=== PATIENT | male | born 2000 | race Caucasian/White ===

== ENCOUNTER 2024-12-21 02:17 | Emergency (ER) | payer SELFPAY ==
[2024-12-21 02:26] VITALS: BP 131/69; PULSE 97; RESP 20; TEMP 36.7; O2SAT 98; BMI 26.4
--- OUTSIDE RECORDS SUMMARY | 2024-12-21 03:00 | XMS_ITS | Encounter Summary ---
Author Organization [facility] Address [address] [place] [address] Care Team Providers Care Vertical Borer Name Role Phone Kimani Reyes MD Primary Care Provider [phone] Angelo Rome MD Primary Care Provider [phone] Reason for Visit * Reason Onset Date Comments Refill Request 07/14/2021 Encounter Details Date Type Department Care Team (Late st Contact Info) Description 07/14/2021 Refill [address] [address] Sample Processor: Kimani Cheatham MD [address] [place] [address] Refill Request Social History Tobacco Use Types Packs/Day Years Used Date Smoking Tobacco: Never Assessed Sex and Gender Information Value Date Recorded Sex Assigned at Not on file Legal Sex Male 11:11 PM EST Gender Identity Not on file Sexual Orientation Not on file documented as of this encounter Plan of Treatment Not on file documented as of this encounter Visit Diagnoses Not on filedocumented in this encounter Care Teams Vertical Borer Relationship Specialty Start Date End Date Kimani Reyes MD [address] [place] [id number] PCP - General PEDIATRICS GENERAL 11/05/19 10/15/24 Angelo Rome MD [address] [place] [address] PCP - General INTERNAL MEDICINE 10/16/24 documented as of this encounter
--- OUTSIDE RECORDS SUMMARY | 2024-12-21 03:00 | XMS_ITS | Encounter Summary ---
Author Organization [facility] Address [place] [address] Care Team Providers Care Cycle Liaison Name Role Phone Kimani Reyes MD Primary Care Provider [phone] Angelo Rome MD Primary Care Provider [phone] Reason for Visit * Reason Onset Date Comments Refill Request 11/09/2020 Encounter Details Date Type Department Care Team (Late st Contact Info) Description 11/09/2020 Refill 5 [facility] [address] [place] [id number] Stock Mover: Kimani Cheatham MD [address] [place] [address] Refill Request Social History Tobacco Use Types Packs/Day Years Used Date Smoking Tobacco: Never Assessed Sex and Gender Information Value Date Recorded Sex Assigned at Not on file Legal Sex Male 11:11 PM EST Gender Identity Not on file Sexual Orientation Not on file documented as of this encounter Miscellaneous Notes * Telephone Encounter - Claire Cruz - 11/09/2020 6:27 PM EDT Left message on HIPPA number he needs to schedule a medication check for refill of medication sincelast visit was in December 2019 and last ordered in March 2020. * Telephone Encounter - Claire Portillo - 11/09/2020 2:01 PM EDT Patient is out of medication documented in this encounter Plan of Treatment Not on file documented as of this encounter Visit Diagnoses Not on filedocumented in this encounter Care Teams Cycle Liaison Relationship Specialty Start Date End Date Kimani Reyes MD [address] [place] [address] PCP - General PEDIATRICS GENERAL 11/05/19 10/15/24 Angelo Rome MD 5 [place] [address] PCP - General INTERNAL MEDICINE 10/16/24 documented as of this encounter
--- OUTSIDE RECORDS SUMMARY | 2024-12-21 03:00 | XMS_ITS | Clinical Summary ---
Author Organization [facility] Address [address] [place] [address] Care Team Providers Care Relay Dispatcher Name Role Phone Angelo oRme MD Primary Care Provider [phone] Allergies Active Allergy Reactions Criticality Noted Date Comments Montelukast Nausea and Vomiting 04/26/2012 Medications No known medications Active Problems Problem Noted Date Diagnosed Date Attention deficit hyperactiv ity disorder (ADHD), combined type 11/14/2018 RAD (reactive airway disease) 04/26/2012 Seasonal allergic rhinitis 04/26/2012 Encounters Date Type Department Care Team Description 10/25/2024 7:55 AM EDT Lab Work 5 [facility] [address] [place] [address] 10/16/2024 6:00 PM EDT Office Visit [address] [place] [address] INTERNAL MEDICINE [address] [place] [address] Shingler: Angelo Coleman MD Comprehensive Physical Exam (New patient) from Last 3 Months Immunizations Immunization Administration Dates Next Due DTAP Vaccine 10/02/2006, 4,03/11/2002,01/07,2001 Gardasil 9 Vaccine (HPV) 03/07/2017,07/29/2016 Hep A Vacc, Ped/adol, (2-Dose) 12/20/2019,2018 Hepatitis B Vaccine, adolesc ent or pediatric 05/27/2002,2001,2001 Hib (Historical) 04/29/2003, 2,01/07/2002,10/25 INFLUENZA >3 VACCINE ([facility]) 02/14/2013 Influenza Vaccine STANDARD ( 6 months +) 03/31/2022,01/09/2021,01/22/2019,03/13,03/07/2017,03/18/2016,06/10/2015 ,03/14/2014,04/26/2012 Influenza, 6-35 months 04/01/2004,03/03/2004 [id number] (H1N1) (Historical) 03/18/2009 ,02/13/2009 Influenza-whole (Historical) 02/24/2011, 01/14/2010,01/01/2009,02/13,01/29/2007,04/02/2006,02/09/2005 MMR VACCINE 09/29/2005,03/06/2003 Meningococcal B Vaccine (BEXSERO) 01/22/2019, Meningococcal vaccine MCV4P (MENACTRA) 9,05/02/2013 Pneumococcal conjugate (Historical) 08/16,05/27/2002,01/22/2002,11/29 Polio Nos (Historical) 10/02/2006,2002,01/22/2002,11/29 Tdap Vaccine 04/26/2012 Varicella Virus Vaccine 10/08/2008,03/06/2003 Family History Medical History Relation Name Comments High Blood Pressure Father High Cholesterol Father High Blood Pressure Mother High Cholesterol Mother Relation Name Status Comments Father Mother Social History Tobacco Use Types Packs/Day Years Used Date Smoking Tobacco: Never Smokeless Tobacco: Never Tobacco Cessation:Counseling Given: Not Answered Alcohol Use Standard Drinks/Week Comments Yes 0 (1 standard drink = 0.6 oz pur e alcohol) weekends few drinks Spiritual Distress Answer Date Recorded Struggle with loss of meaning Not on file Gnosticism Struggles Not on file 09/29/2021 Sex and Gender Information Value Date Recorded Sex Assigned at Not on file Legal Sex Male 11:11 PM EST Gender Identity Not on file Sexual Orientation Not on file Last Filed Vital Signs Vital Sign Reading Time Taken Comments Blood Pressure 120/82 10/16/2024 6:01 PM EDT Pulse 92 10/16/2024 6:01 PM EDT Temperature 36.9 C (98.4 F) 10/16/2024 6:01 PM EDT Respiratory Rate 18 11/10/2021 4:43 PM EDT Oxygen Saturation 94% 10/16/2024 6:01 PM EDT Inhaled Oxygen Concentration - - Weight 99.3 kg (219 lb) 10/16/2024 6:01 PM EDT Height 185.4 cm (6' 1 ) 10/16/2024 6:01 PM EDT Body Mass Index 28.89 10/16/2024 6:01 PM EDT Plan of Treatment Health Maintenance Due Date Last Done Comments Depression Screening (PHQ2/9) 2001 Hepatitis B Screen 2001 HIV SCREEN 08/19/2019 Hepatitis C Screening 08/19/2019 DTaP/Tdap/Td Vaccines (7 - Td or Tdap) 04/26/2022 04/26/2012, 10/02/2006, 04/29/2003, Additional history exists COVID-19 Vaccination ( season) 2024 04/01/2021, 08/09/2020, 07/19/2020 FLU VACCINE 12/16/2024 03/31/2022, 03/17, 01/09/2021, Additional history exists Preventive Health Visit 10/16/2025 10/17/19, 11/10/2021, 12/20/2019 Zoster (Shingrix) Vaccines (1 of 2) 08/19/2051 HPV Vaccines Completed 03/07/2017, 07/29/2016 Well Child & Young Adult Visit Discontinued 10/16/2024, 11/10/2021, 12/20/2019, Additional history exists Pneumococcal Vaccine Aged Out No long er eligible based on patient's age to complete this topic Procedures Procedure Name Priority Date/Time Associated Diagnosis Comments CBC+PLT+DIFF Routine 10/25/2024 7:54 AM EDT Routine general medical examination at a health care facility COMPREHENSIVE METABOLIC PANEL Routine 10/25/2024 7:54 AM EDT Routine general medical examination at a health care facility LIPID PANEL Routine 10/25/2024 7:54 AM EDT Routine general medical examination at a health care facility TSH Routine 10/25/2024 7:54 AM EDT Routine general medical examination at a health care facility URINALYSIS, ROUTINE Routine 10/25/2024 7 :54 AM EDT Routine [facility] from Last 3 Months Results * TSH (10/25/2024 7:54 AM EDT) TSH 1.64 0.34 - 5.60 UIU/ML NS LAB Blood 10/25/2024 7:54 AM EDT us Angelo Rome MD LABORATORY Final Result NS LAB [facility] [address] [place] [address] [place] [address] * CBC+PLT+DIFF (10/25/2024 7:54 AM EDT) WBC 5.2 3.8 - 10.5 X10E3 NS LAB RBC BLOOD CELL 4.69 4.35 - 5.90 X10E6 NS LAB Hemoglobin 14.3 13.5 - 17.1 G/DL NS LAB HEMATOCRIT 42.5 40.5 - 51.3 % NS LAB MEAN CASI. VOLUME 91.0 80.0 - 98.0 FL NS LAB MEAN CASI. HGB 30.4 27.0 - 33.0 PG NS LAB MEAN CASI. HGB CONC. 33.6 32.0 - 36.0 G/DL NS LAB RED DISTRIB. WIDTH 13.8 11.0 - 14.6 % NS LAB PLATELET 290.0 140.0 - 375.0 X10E3 NS LAB MEAN PLT VOLUME 8.1 6.8 - 10.6 FL NS LAB NEUTROPHIL % 59.0 50.0 - 70.0 % NS LAB LYMPHOCYTE % 31.0 20.0 - 50.0 % NS LAB MONOCYTE % 5.8 0.0 - 10.0 % NS LAB NEUTROPHIL # 3.1 2.0 - 7.5 /MM NS LAB LYMPHOCYTE # 1.6 1.0 - 4.0 K/UL NS LAB MONOCYTE # 0.3 0.2 - 1.0 /MM NS LAB EOSINOPHIL % 3.5 0.0 - 5.0 % NS LAB BASOPHIL % 0.7 0.0 - 1.0 % NS LAB EOSINOPHIL # 0.2 0.0 - 0.6 NS LAB BASOPHIL # 0.0 0.0 - 0.2 NS LAB Blood 10/25/2024 7:54 AM EDT Angelo Rome MD LABORATORY Final Result Performing Organization Address City/[facility] Co de Phone Number NS LAB [facility] [address] [place] [address] [place] [address] * URINALYSIS, ROUTINE (10/25/2024 7:54 AM EDT) COLOR YELLOW NS LAB CLARITY CLEAR NS LAB U-PH 6.5 5.0 - 8.0 NS LAB U-SPECIFIC GRAVITY 1.020 1.001 - 1.035 NS LAB U-PROTEIN NEGATIVE NEGATIVE NS LAB U-GLUCOSE NEGATIVE NEGATIVE NS LAB U-KETONE NEGATIVE NEGATIVE NS LAB U-BLOOD NEGATIVE NEGATIVE NS LAB UROBILINOGEN 0.2 0.2 E.U./DL - 1.0 E. NS LAB U-NITRITE NEGATIVE NEGATIVE NS LAB U-LEUKOCYTE ESTERASE NEGATIVE NEGATIVE NS LAB U-BILIRUBIN NEGATIVE NEGATIVE NS LAB Urine 10/25/2024 7:54 AM EDT Angelo Rome MD URINE ORDERABLES Final Result Performing Organization Address City/[facility]/ZIP Co de Phone Number NS LAB [facility] [address] [phone] [place] [address] * (ABNORMAL) LIPID PANEL (10/25/2024 7:54 AM EDT) CHOLESTEROL 159.0 0.0 - 200.0 MG/DL NS LAB TRIGLYCERIDES 36.0(L) 48.0 - 150.0 MG/DL NS LAB HDL cholesterol 62.7 33.0 - 78.0 MG/DL NS LAB LDL Cholesterol, Direct 93.3 50.0 - 130.0 MG/DL NS LAB VLDL 7.0 5.0 - 30.0 MG/DL NS LAB CHOL/HDL CHOL RATIO 2.5 2.3 - 5.0 NS LAB Blood 10/25/2024 7:54 AM EDT Angelo Rome MD LABORATORY Final Result NS LAB [facility] [address] [facility] [phone] [place] [address] * COMPREHENSIVE METABOLIC PANEL (10/25/2024 7:54 AM EDT) Pathologist [facility] GLUCOSE 90.0 70.0 - 99.0 MG/DL NS LAB UREA NITROGEN 15.4 7.0 - 25.0 MG/DL NS LAB CREATININE 1.1 0.6 - 1.3 MG/DL NS LAB EGFR NON- AM 82.95 ML/MIN/1.7 NS LAB EGFR AM 82.95 ML/MIN/1.7 NS LAB CALCIUM 9.8 8.6 - 10.3 MG/DL NS LAB Protein Total, Serum 7.4 6.0 - 8.3 G/DL NS LAB ALBUMIN, BLD 4.5 3.7 - 5.3 G/DL NS LAB AST (SGOT) 31.0 0.0 - 39.0 U/L NS LAB ALT(SGPT) 18.0 0.0 - 52.0 U/L NS LAB ALK PHOSPHATASE, BLD 45.0 34.0 - 104.0 U/L NS LAB BILIRUBIN TOTAL 0.6 0.3 - 1.3 MG/DL NS LAB SODIUM-BLD 139.0 135.0 - 145.0 MEQ/L NS LAB Potassium 3.8 3.5 - 5.2 MEQ/L NS LAB CHLORIDE-BLD 102.0 98.0 - 109.0 MEQ/L NS LAB CO2 TOTAL 29.9 21.0 - 31.0 MEQ/L NS LAB 10/25/2024 7:54 AM EDT Angelo Rome MD LABORATORY Final Result NS LAB [facility] [address] [facility] [phone] [place] [address] from Last [address] [facility] Address: [phone] [place] [address] on file Care Teams Relay Dispatcher Relationship Specialty Start Date End Date Angelo Rome MD [address] [place] [address] PCP - General INTERNAL MEDICINE 10/16/24
--- OUTSIDE RECORDS SUMMARY | 2024-12-21 03:00 | XMS_ITS | Encounter Summary ---
Author Organization [facility] [place] [address] Care Team Providers Care Egg Producer Name Role Phone Madalyn Da Silva MD Primary Care Provider [phone] Ludwin Taylor MD Primary Care Provider [phone] Kimani Reyes MD Primary Care Provider [phone] Angelo Rome MD Primary Care Provider [phone] Encounter Details Date Type Department Care Team (Late st Contact Info) Description 12/23/2013 Orders Only [facility]ACT[facility] [address] [place] [id number] Mad[place] [address] Social History Tobacco Use Types Packs/Day Years Used Date Smoking Tobacco: Never Assessed Sex and Gender Information Value Date Recorded Sex Assigned at Not on file Legal Sex Male 11:11 PM EST Gender Identity Not on file Sexual Orientation Not on file documented as of this encounter Plan of Treatment Not on file documented as of this encounter Procedures Procedure Name Priority Date/Time Associated Diagnosis Comments CXR PA & LL ONLY ADMITTING Routine 12/23/2013 10:00 AM EDT documented in this encounter Results * CXR PA & LL ONLY ADMITTING (12/23/2013 10:00 AM EDT) TEXT Chest Clinical history: Left chest pain PA and lateral views of the chest show the bony thorax to be intact. The trachea is midline. The mediastinum and cardiac silhouette are normal in appearance. No airspace consolidation, pleural effusion or pneumothorax is seen. Impression: Normal chest RADIOLOGY MAIN Anatomical Region Laterality Modality Other 12/23/2013 10:0 0 AM EDT Madalyn Da Silva MD GENERAL IMAGING Final Result documented in this encounter Visit Diagnoses Not on filedocumented in this encounter Care Teams Egg Producer Relationship Specialty Start Date End Date [place] [address] PCP - General PEDIATRICS GENERAL 02/14/13 01/21/19 Ludwin Taylor MD [address] [place] [address] PCP - General PEDIATRICS GENERAL 01/22/19 11/04/19 Kimani Reyes MD [address] [place] [address] PCP - General PEDIATRICS GENERAL 11/05/19 10/15/24 Angelo Rome MD [address] [place] [phone] PCP - General INTERNAL MEDICINE 10/16/24 documented as of this encounter
--- OUTSIDE RECORDS SUMMARY | 2024-12-21 03:00 | XMS_ITS | Encounter Summary ---
Author Organization [facility] [address] Care Team Providers Care Oil Well Cable Tool Operator Name Role Phone Madalyn Da Silva MD Primary Care Provider [phone] Ludwin Taylor MD Primary Care Provider [phone] Kimani Reyes MD Primary Care Provider [phone] Angelo Rome MD Primary Care Provider [phone] Encounter Details Date Type Department Care Team (Late st Contact Info) Description 12/23/2013 Orders Only [facility]_DEACTIVATED [address] [place] [id number] Madalyn aD Silva MD [place] [id number] Social History Tobacco Use Types Packs/Day Years Used Date Smoking Tobacco: Never Assessed Sex and Gender Information Value Date Recorded Sex Assigned at Not on file Legal Sex Male 11:11 PM EST Gender Identity Not on file Sexual Orientation Not on file documented as of this encounter Plan of Treatment Not on file documented as of this encounter Visit Diagnoses Diagnosis Chest pain on breathing Painful respiration documented in this encounter Care Teams Oil Well Cable Tool Operator Relationship Specialty Start Date End Date Madalyn Da Silva MD [place], [place] [phone] PCP - General PEDIATRICS GENERAL 02/14/13 01/21/19 Ludwin Taylor MD [address] [place] [address] PCP - General PEDIATRICS GENERAL 01/22/19 11/04/19 Kimani Reyes MD [address] [place] [address] PCP - General PEDIATRICS GENERAL 11/05/19 10/15/24 Angelo Rome MD [address] [place] [id number] PCP - General INTERNAL MEDICINE 10/16/24 documented as of this encounter
--- OUTSIDE RECORDS SUMMARY | 2024-12-21 03:00 | XMS_ITS | Encounter Summary ---
[facility] Address [place] [address] Care Team Providers Care Registered Client Associate Name Role Phone Kimani Reyes MD Primary Care Provider [phone] Angelo Rome MD Primary Care Provider [phone] Reason for Visit * Reason Onset Date Comments Medication Refill 02/19/2021 Encounter Details Date Type Department Care Team (Late st Contact Info) Description 02/19/2021 Telephone 5 [facility] [address] [place] [address] Surgical Aides Teacher: Kimani Cheatham MD [address] [place], [place] [id number] Medication Refill Social History Tobacco Use Types Packs/Day Years Used Date Smoking Tobacco: Never Assessed Sex and Gender Information Value Date Recorded Sex Assigned at Not on file Legal Sex Male 11:11 PM EST Gender Identity Not on file Sexual Orientation Not on file documented as of this encounter Miscellaneous Notes * Telephone Encounter - Kimani Reyes MD - 02/19/2021 12:35 PM EDT escribed * Telephone Encounter - Mert Anirudh - 02/19/2021 12:22 PM EDT Angelo Montes is a 20 y.o. male who is requesting a medication refill PTs mothe is leaving to bring medication to PTs school tmrw Initial pharmacy did not have medication, PTs mother is asking if new script could sent to [facility] in [place] Last Appointment Date: Last Appointment Visit Type: Next Appointment Date: Next Appointment Visit Type: Name of Medication Dose of Medication Frequency of Medication lisdexamfetamine (VYVANSE) 30 mg capsule (VYVANSE) 30 mg capsule Take 1 capsule by mouth every morning. Max Daily Amount: 30 mg. The prior medication(s) is/are on the current medication list. Pharmacy Information: Name: [id number] - [address] Address/Town: Phone Number: documented in this encounter Plan of Treatment Not on file documented as of this encounter Visit Diagnoses Not on filedocumented in this encounter Care Teams Registered Client Associate Relationship Specialty Start Date End Date Kimani Reyes MD [address] [place] [phone] PCP - General PEDIATRICS GENERAL 11/05/19 10/15/24 Angelo Rome MD [address] [place] [address] PCP - General INTERNAL MEDICINE 10/16/24 documented as of this encounter
== END 2024-12-21 03:16 | disposition left against medical advice (07) ==
PROVIDERS: Emergency Provider Emergency Medicine
DX: M79.641 Pain in right hand (principal)
CPT/HCPCS: 99281